=== PATIENT | female | born 1960 | race Hispanic/Latino ===

== ENCOUNTER → 2019-05-14 | Outpatient (CLI) | payer BC | END | disposition home or self-care (01) | LOC: OIH 12:40 | PROVIDERS: ATTEND Internal Medicine | DX: M24.811 Other specific joint derangements of right shoulder, not elsewhere classified (principal); M25.531 Pain in right wrist; M54.12 Radiculopathy, cervical region; R22.9 Localized swelling, mass and lump, unspecified | CPT/HCPCS: 72040; 73030; 73100 ==

== ENCOUNTER → 2019-11-13 | Outpatient (CLI) | payer BC | END | disposition home or self-care (01) | LOC: OIH 14:34 | PROVIDERS: ATTEND Internal Medicine | DX: R05 Cough (principal) | CPT/HCPCS: 71046 ==

== ENCOUNTER → 2019-12-18 | Outpatient (CLI) | payer BC | END | disposition home or self-care (01) | LOC: RAH 13:08 | PROVIDERS: ATTEND Internal Medicine | DX: K44.9 Diaphragmatic hernia without obstruction or gangrene (principal) ==

== ENCOUNTER → 2024-10-11 | Outpatient (CLI) | payer BC ==
[~2024-10-11] MED LIST: FENTanyl CITRate PF 50 MCG/1 ML 2ML VIAL ONE; GADOTERATE MEGLUMINE 10 MMOL/20 ML VIAL IV ONE; MIDAZOLAM HCL 1 MG/ML 2ML VIAL ONE
--- NOTE | 2024-10-11 10:00 | NUR ---
MRI OF PELVIS W/WO WITH CONSCIOUS SEDATION PATIENT TOLERATED PROCEDURE WELL. HEPLOCK REMOVED AND PATIENT RECOVERED IN RADIOLOGY ROOM. DISCHARGE INSTRUCTIONS GIVEN AND VERBALIZED UNDERSTANDING. DISCHARGED VIA AMBULATION AT 1000 WITH . AAO X3 WITH NO C/O DISCOMFORT.
--- NOTE | 2024-10-11 14:03 | HMCIMG ---
MR PELVIS W/WO CON HISTORY: Malignant neoplasm of rectum COMPARISON: None TECHNIQUE: MRI of the pelvis was performed utilizing multiple pulse sequences in axial, coronal and sagittal planes. Patient was given 20 cc of Clariscan through intravenous route. FINDINGS: Pelvic sidewalls are symmetric bilaterally. Bladder is poorly distended. There is rectal wall thickening measuring 2.4 cm may be related to neoplastic process. There is mild diverticulosis. No evidence of pelvic adenopathy or ascites. Rectal arthroplasty is grossly intact without definite invasive process. No abnormal signal intensity is seen of the visualized bony structure IMPRESSION: 1. Rectal wall thickening may be related to neoplastic process. No ascites.
== END | disposition home or self-care (01) ==
LOC: RAH 07:31
PROVIDERS: ATTEND Surgery Surgical Oncology
DX: C20 Malignant neoplasm of rectum (principal); K57.90 Diverticulosis of intestine, part unspecified, without perforation or abscess without bleeding
CPT/HCPCS: 72197; J3010; J2250 ×2; A9575